=== PATIENT | female | born 1935 | race American Indian/Alaskan Native ===

== ENCOUNTER 2016-08-11 19:03 | Inpatient (IN) | payer MEDICARE ==
[2016-08-11 20:39] LABS: Basophils % (Auto) 0.4 % (0.0-1.8); Eosinophils % (Auto) 2.2 % (0.0-4.3); Hematocrit 33.8 % (30.3-42.9); Hemoglobin 10.9 gm/dl (10.1-14.3); Mean Corpuscular HGB Conc 32 % (30-34); Mean Corpuscular Hemoglobin 31 pg (28-32); Mean Corpuscular Volume 97 fl (79-97); Platelet Count 124 K/mm3 (140-440); Red Blood Count 3.48 M/mm3 (3.65-5.03); Red Cell Distribution Width 18.5 % (13.2-15.2); White Blood Count 9.7 K/mm3 (4.5-11.0)
[2016-08-11] MEDS ORDERED: DUONEB 0.5 MG-3 MG/3 ML SOLN IH ONE (20:43)
[2016-08-11 20:54] LABS: INR 1.64 (0.87-1.13)
--- NOTE | 2016-08-11 20:54 | Emergency Department Report ---
HPI - General Chief Complaint: Dyspnea/Respdistress Time Seen by Provider: 08/11/16 20:14 - HPI HPI: This is an 80-year-old Afro[place] female presents to the emergency department by EMS from [facility] with complaint of shortness of breath and some low oxygen saturation. The patient was found to have a oxygen saturation in the 80s on 3 L nasal cannula, which she is on [id number]. EMS placed her on a nonrebreather and she went up to 96%. She has a history of COPD, diabetes, GERD, hypertension, atrial fibrillation. The patient is on Pradaxa but unknown if she is compliant with that medication. There is also a listing of previous hypothyroidism, GERD, anemia, glaucoma. 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 She comes some [facility]. Unknown who her primary care doctor is. ED Past Medical Hx - Past Medical History Previous Medical History?: Yes Hx Hypertension: Yes Hx Diabetes: Yes Hx GERD: Yes Hx COPD: Yes - Surgical History Past Surgical History?: Yes - Social History Smoking Status: Never Smoker Substance Use Type: None - Medications Home Medications: Home Medications Medication Instructions Recorded Confirmed Last Taken Type AtorvaSTATin [Lipitor] 10 mg PO QDAY 08/11/16 08/11/16 Unknown History Cholecalciferol (Vitamin D3) 1,000 unit PO QDAY 08/11/16 08/11/16 Unknown History [Vitamin D3] Dabigatran [Pradaxa] 150 mg PO BID 08/11/16 08/11/16 Unknown History Docusate Calcium 240 mg PO QDAY 08/11/16 08/11/16 Unknown History Escitalopram [Lexapro] 10 mg PO DAILY 08/11/16 08/11/16 Unknown History Fluticasone/Salmeterol [Advair 1 puff IH BID 08/11/16 08/11/16 Unknown History Diskus 250-50 mcg] Hydrocortisone [Cortef TAB] 20 mg PO QDAY 08/11/16 08/11/16 Unknown History LORazepam [Ativan] 0.5 mg PO TID 08/11/16 08/11/16 Unknown History Levothyroxine [Synthroid] 75 mcg PO QAM 08/11/16 08/11/16 Unknown History Metoprolol [Lopressor] 25 mg PO BID 08/11/16 08/11/16 Unknown History Omeprazole Magnesium [PriLOSEC Otc] 20 mg PO QDAY 08/11/16 08/11/16 Unknown History Tiotropium [Spiriva] 18 mcg IH QDAY 08/11/16 08/11/16 Unknown History Travoprost (Benzalkonium) 1 drop OP QHS 08/11/16 08/11/16 Unknown History [Travoprost 0.004% Eye Drop] Vitamin B Complex [B Complex] 1 each PO DAILY 08/11/16 08/11/16 Unknown History amLODIPine [Norvasc] 10 mg PO DAILY 08/11/16 08/11/16 Unknown History hydrALAZINE [Apresoline TAB] 10 mg PO Q8H 08/11/16 08/11/16 Unknown History traMADol [Ultram] 50 mg PO Q6HR PRN 08/11/16 08/11/16 Unknown History ED Review of Systems ROS: Stated complaint: ULYSSES Other details as noted in HPI Comment: All other systems reviewed and negative Constitutional: denies: chills, fever Eyes: denies: eye pain, eye discharge, vision change ENT: denies: ear pain, throat pain Respiratory: cough, shortness of breath Cardiovascular: denies: chest pain, palpitations Gastrointestinal: denies: abdominal pain, nausea, diarrhea Genitourinary: denies: urgency, dysuria, discharge Musculoskeletal: denies: back pain, joint swelling, arthralgia Skin: denies: rash, lesions Neurological: denies: headache, weakness, paresthesias Physical Exam - Physical Exam Vital Signs: Vital Signs 08/11/16 08/11/16 08/11/16 19:25 20:26 20:30 Temperature 98.2 F Pulse Rate 108 H 107 H 94 H Respiratory 20 18 17 Rate Blood Pressure 112/74 132/82 O2 Sat by Pulse 96 Oximetry Physical Exam: GENERAL: The patient is well-developed well-nourished. HEENT: Normocephalic. Atraumatic. Extraocular motions are intact. Patient has moist mucous membranes. Pupils equal reactive to light bilaterally. NECK: Supple. Trachea is midline. CHEST/LUNGS: Coarse breath sounds throughout the chest. There is moderate wheezing throughout the chest as well. There is tachypnea and some supraclavicular accessory muscle use. There is mild respiratory distress noted. HEART/CARDIOVASCULAR: Regular. There is no tachycardia. There is no gallop rub or murmur. ABDOMEN: Abdomen is soft, nontender. Patient has normal bowel sounds. Obese habitus. SKIN: Skin is warm and dry. NEURO: The patient is awake, alert. The patient is cooperative. The patient has no focal neurologic deficits. MUSCULOSKELETAL: There is no tenderness or deformity. There is no limitation range of motion. There is no evidence of acute injury. Cap refill less than 2 seconds. Radial pulse +2 over 4 bilaterally. ED Course Vital Signs 08/11/16 08/11/16 08/11/16 19:25 20:26 20:30 Temperature 98.2 F Pulse Rate 108 H 107 H 94 H Respiratory 20 18 17 Rate Blood Pressure 112/74 132/82 O2 Sat by Pulse 96 Oximetry - ABG Interpretation Ph: [phone] PCO2: 51 PO2: 330 Bicarbonate: 33 Interpretation: respiratory acidosis, metabolic alkalosis - Central Line Placement Right Femoral Consent Obtained: verbal consent Time Out Performed: Yes Patient Placed on Monitor/Pulse Ox: Yes MD Prep: mask, gown, gloves Central Line Prep: Chlorhexidine scrub Local Anesthesia Used: Lidocaine 1% Amount of Anesthesia Used (mls): 3 Ultrasound Used for Placement: Yes Central Line Lumen Inserted: triple Bloods Obtained for Lab: No Central Line Position: good blood return, all ports aspirated, flus, sutured in place with nyl Dressing Applied: Tegaderm, sterile gauze/tape Patient Tolerated Procedure: well Complications: none Additional Comments: Prior to the right femoral central venous catheter, I attempted to place a right IJ CVC. However I cannulated the artery and therefore did not continue with the Seldinger technique. There was no introduction of the guidewire and there was no dilation. As soon as I noticed it to be arterial blood, the needle was removed and pressure was held for 5 minutes. At this point there was no expanding hematoma seen. I then changed the procedure to the right femoral vein. - EJ/Peripheral Line Arm L Time Out Performed: Yes Indications: nurses unable to establis Skin Cleansed in Sterile Fashion: Yes Size: 22 Dressing Placed: Tegaderm, tape Patient Tolerated Procedure: well Additional Comments: However the peripheral line eventually stopped working while the patient was in VQ scan. ED Medical Decision Making - Lab Data Result diagrams: 08/11/16 20:31 05/03/17 20:31 - EKG Data -: EKG Interpreted by Me - EKG Data When compared to previous EKG there are: previous EKG unavailable Interpretation: other (atrial fibrillation with RVR at 108 bpm. There are some premature ventricular complexes. Low voltage QRS, Q waves to the septal leads.) - Radiology Data Radiology results: report reviewed, image reviewed interpreted by me: Chest x-ray shows some mild to moderate cardiomegaly and pulmonary vascular congestion. Concerning for mild CHF. VQ scan is low probability for a pulmonary embolism. - Medical Decision Making This is a 80-year-old female presents the emergency department with some shortness of breath from her ECF. She was found have hypoxia at that time. She did present with some mild respiratory distress and was placed on a nonrebreather. This appeared to help, along with a DuoNeb. The arterial blood gas showed her to have too much oxygen being administered so she was switched to a nasal cannula. Patient's labs show a arterial blood gas consistent with respiratory acidosis and metabolic alkalosis. I believe the patient was having tachypnea and blowing off some of her excess CO2. Her labs also showed an elevated BNP, elevated lactic acid and an elevated d-dimer. There was no renal insufficiency. However we were having trouble getting peripheral IV access so a VQ scan was to be done. The nurses tried multiple times for peripheral IV. I was able to place a ultrasound-guided peripheral IV but it blew just before her VQ scan. A few other attempts were done but unsuccessful. At this point, knowing the patient needed further imaging and admission, a central line venous catheter was placed so that there was some type of IV access. As discussed in the procedural sec., I attempted to place a right IJ CVC but patient's anatomy was such that I hit the artery first. At this point the needle was taken out and direct pressure was held over the carotid and neck for 5 minutes and upon reevaluation there was no expansion or expanding hematoma. I then decided to put a right femoral CVC instead. This was done without any obvious complications. The VQ scan was eventually done and showed low probability for pulmonary embolus and. Overall the patient appears to have a combination of COPD exacerbation and CHF exacerbation. She will be admitted to the hospital for further evaluation and treatment and has been accepted for admission by the hospitalist, Dr. Moss. - Differential Diagnosis CHF, COPD, WI, PE, pneumonia Critical Care Time: No Critical care attestation.: If time is entered above; I have spent that time in minutes in the direct care of this critically ill patient, excluding procedure time. ED Disposition Clinical Impression: Respiratory distress Hypertension Qualifiers: Hypertension type: essential hypertension Qualified Code(s): I10 - Essential ( primary) hypertension CHF (congestive heart failure) Qualifiers: Congestive heart failure type: unspecified congestive heart failure type Congestive heart failure chronicity: unspecified congestive heart failure chronicity Qualified Code(s): I50.9 - Heart failure, unspecified COPD (chronic obstructive pulmonary disease) Qualifiers: COPD type: COPD with acute exacerbation Qualified Code(s): J44.1 - Chronic obstructive pulmonary disease with (acute) exacerbation Disposition: OP ADMITTED IP TO THIS HOSP Is pt being admited?: Yes Condition: Fair Instructions: Hypertension (ED), Chronic Obstructive Pulmonary Disease (ED) Referrals: PRIMARY CARE, [Primary Care Provider] - 3-5 Days Time of Disposition: 04:12
[2016-08-11 20:55] LABS: Partial Thromboplastin Time 49.5 Sec. (24.2-36.6)
[2016-08-11 21:04] LABS: Creatine Kinase MB 1.4 ng/mL (0.0-4.0)
[2016-08-11 21:06] LABS: Alanine Aminotransferase 12 units/L (7-56); Albumin 2.6 g/dL (3.9-5); Albumin/Globulin Ratio 0.8 %; Alkaline Phosphatase 58 units/L (35-129); Anion Gap 16 mmol/L; BUN/Creatinine Ratio 7.77; Blood Urea Nitrogen 7 mg/dL (7-17); Calcium 8.1 mg/dL (8.4-10.2); Carbon Dioxide 31 mmol/L (22-30); Chloride 98.3 mmol/L (98-107); Creatine Kinase 65 units/L (30-135); Glucose 87 mg/dL (65-100); Lipase 7 units/L (13-60); Potassium 4.9 mmol/L (3.6-5.0); Sodium 140 mmol/L (137-145)
--- NOTE | 2016-08-11 22:00 | XRay Report ---
FINAL REPORT PROCEDURE: XR CHEST 1V AP TECHNIQUE: Chest radiograph anteroposterior view. CPT 56208 HISTORY: Dyspnea COMPARISON: No prior studies are available for comparison. FINDINGS: Heart: The heart is enlarged. Mediastinum/Vessels: There is mild pulmonary vascular congestion. There is calcified plaque in the thoracic aorta. There is no aneurysm.. Lungs/Pleural space: There is suboptimal inspiration. There is atelectasis at the left lung base. There are no infiltrates, effusions or pneumothoraces.. Bony thorax: No acute osseous abnormality. Life support devices: None. IMPRESSION: The heart is enlarged. There is mild pulmonary vascular congestion. There is calcified plaque in the thoracic aorta. There is no aneurysm.. There is suboptimal inspiration. There is atelectasis at the left lung base. There are no infiltrates, effusions or pneumothoraces.. .
[2016-08-11] MEDS ORDERED: LASIX IV ONE (22:37)
[2016-08-11] MEDS ORDERED: MAGNESIUM SULFATE 2GM/50ML 2 GM/50 ML BAG IV ONE (22:37)
[2016-08-11 22:41] LABS: ISTAT Base Excess 9; ISTAT HCO3 33.6; ISTAT PCO2 51.9 (35-45); ISTAT PH 7.419 (7.35-7.45); ISTAT PO2 330 (80-105); ISTAT SO2 100; ISTAT TCO2 35
--- NOTE | 2016-08-12 01:58 | Nuclear Medicine Report ---
FINAL REPORT PROCEDURE: NM LUNG SCAN PERF/VENT TECHNIQUE: 5 mCi Tc-99m MAA was injected IV for pulmonary perfusion imaging in multiple projections. 15 MCi XE-[id number] was inhaled for pulmonary ventilation imaging in multiple projections. Injection site: RIGHT antecubital fossa. CPT 42346 REGULATORY GUIDELINES: The patient was released based upon guidelines established in [place] State Regulations for Protection Against Radiation, Chapter 1355-07-13-35, Release of Individuals Containing Radioactive Drugs or Implants. HISTORY: SOb, elevated dimer COMPARISON: No prior studies are available for comparison. FINDINGS: Both the ventilation and perfusion studies demonstrate indirect evidence of cardiomegaly. There are no perfusion defects or matching or mismatching ventilation defects.. IMPRESSION: Low probability of pulmonary embolism.
[2016-08-12] MEDS ORDERED: PROVENTIL IH ONE (02:08)
[2016-08-12] MEDS ORDERED: LOPRESSOR IV ONE (02:09)
[2016-08-12] MEDS ORDERED: ZOFRAN IV PRN (03:35)
[2016-08-12] MEDS ORDERED: MILK OF MAGNESIA PO PRN (03:35)
[2016-08-12] MEDS ORDERED: DULCOLAX PR PRN (03:35)
[2016-08-12] MEDS ORDERED: TYLENOL PO PRN (03:35)
--- NOTE | 2016-08-12 03:38 | History and Physical Report ---
History of Present Illness Date of examination: 08/12/16 History of present illness: 80-year-old woman history of hypertension, diabetes, COPD, GERD, A. fib, hypothyroidism, hyperlipidemia comes emergency room with complaints of shortness of breath, cough. Patient was given steroids and nebulizer treatments in the emergency room. Status post recent surgery on the left foot Patient denies chest pain, palpitation, abdominal pain, hematochezia, dysuria, frequency, focal weakness, dysarthria, fever chills, polydipsia polyuria, hot or cold intolerance, easy bruisability, or rash or bleeding from mucosal membrane, rhinorrhea, epistaxis, earache, tinnitus, blurry vision, eye discharge , anxiety, depression. Other review of systems negative PAST SURGICAL HISTORY: Amputation of the left great and second toe SOCIAL HISTORY: [facility] resident, no tobacco, alcohol FAMILY HISTORY: Hypertension Medications and Allergies Allergies Allergy/AdvReac Type Severity Reaction Status Date / Time Penicillins Allergy Severe Anaphylaxis Verified 08/11/16 19:56 Home Medications Medication Instructions Recorded Confirmed Last Taken Type AtorvaSTATin [Lipitor] 10 mg PO QDAY 08/11/16 08/11/16 Unknown History Cholecalciferol (Vitamin D3) 1,000 unit PO QDAY 08/11/16 08/11/16 Unknown History [Vitamin D3] Dabigatran [Pradaxa] 150 mg PO BID 08/11/16 08/11/16 Unknown History Docusate Calcium 240 mg PO QDAY 08/11/16 08/11/16 Unknown History Escitalopram [Lexapro] 10 mg PO DAILY 08/11/16 08/11/16 Unknown History Fluticasone/Salmeterol [Advair 1 puff IH BID 08/11/16 08/11/16 Unknown History Diskus 250-50 mcg] Hydrocortisone [Cortef TAB] 20 mg PO QDAY 08/11/16 08/11/16 Unknown History LORazepam [Ativan] 0.5 mg PO TID 08/11/16 08/11/16 Unknown History Levothyroxine [Synthroid] 75 mcg PO QAM 08/11/16 08/11/16 Unknown History Metoprolol [Lopressor] 25 mg PO BID 08/11/16 08/11/16 Unknown History Omeprazole Magnesium [PriLOSEC Otc] 20 mg PO QDAY 08/11/16 08/11/16 Unknown History Tiotropium [Spiriva] 18 mcg IH QDAY 08/11/16 08/11/16 Unknown History Travoprost (Benzalkonium) 1 drop OP QHS 08/11/16 08/11/16 Unknown History [Travoprost 0.004% Eye Drop] Vitamin B Complex [B Complex] 1 each PO DAILY 08/11/16 08/11/16 Unknown History amLODIPine [Norvasc] 10 mg PO DAILY 08/11/16 08/11/16 Unknown History hydrALAZINE [Apresoline TAB] 10 mg PO Q8H 08/11/16 08/11/16 Unknown History traMADol [Ultram] 50 mg PO Q6HR PRN 08/11/16 08/11/16 Unknown History Exam - Physical Exam Narrative exam: Gen. appearance: Patient lying in bed, no apparent distress HEENT: Normocephalic, atraumatic, pupils equally round and reactive to light, extraocular movement intact, and no sclericterus,. No JVD or thyromegaly or nodule,neck supple, no carotid bruit ,mucous membranes moist, no exudate or erythema Heart: S1, S2, regular rate and rhythm Lungs: Diffuse wheezing, decreased air entry bilaterally, breathing comfortable Abdomen: Positive bowel sounds, nontender, nondistended, no organomegaly Extremity: No edema, cyanosis, clubbing Skin: No rash, nodules, warm, dry Neuro: Oriented 3, cranial nerves II-12 intact, speech is fluent, motor and sensory intact - Constitutional Vitals: Temp Pulse Resp BP Pulse Ox 98.2 F 96 H 20 175/89 98 08/11/16 19:25 08/12/16 02:56 08/12/16 02:56 08/12/16 02:00 08/12/16 02:00 Results - Labs CBC & Chem 7: 08/13/16 07:15 08/13/16 07:15 Labs: Abnormal lab results 08/11/16 08/11/16 08/11/16 Range/Units 20:31 20:31 20:31 RBC 3.48 L (3.65-5.03) M/mm3 RDW 18.5 H (13.2-15.2) % Plt Count 124 L (140-440) K/mm3 Lymph % (Auto) 7.9 L (13.4-35.0) % Lymph # 0.8 L (1.2-5.4) K/mm3 Seg Neutrophils % 83.4 H (40.0-70.0) % Seg Neutrophils # 8.1 H (1.8-7.7) K/mm3 PT 19.4 H (12.2-14.9) Sec. INR 1.64 H (0.87-1.13) APTT 49.5 H (24.2-36.6) Sec. D-Dimer (0-234) ng/mlDDU POC ABG pCO2 (35-45) POC ABG pO2 (80-105) Carbon Dioxide 31 H (22-30) mmol/L Lactic Acid (0.7-2.0) mmol/L Calcium 8.1 L (8.4-10.2) mg/dL NT-Pro-B Natriuret Pep (0-900) pg/mL Total Protein 6.0 L (6.3-8.2) g/dL Albumin 2.6 L (3.9-5) g/dL Lipase 7 L (13-60) units/L 08/11/16 08/11/16 08/11/16 Range/Units 20:31 20:31 20:51 RBC (3.65-5.03) M/mm3 RDW (13.2-15.2) % Plt Count (140-440) K/mm3 Lymph % (Auto) (13.4-35.0) % Lymph # (1.2-5.4) K/mm3 Seg Neutrophils % (40.0-70.0) % Seg Neutrophils # (1.8-7.7) K/mm3 PT (12.2-14.9) Sec. INR (0.87-1.13) APTT (24.2-36.6) Sec. D-Dimer 819.59 H (0-234) ng/mlDDU POC ABG pCO2 (35-45) POC ABG pO2 (80-105) Carbon Dioxide (22-30) mmol/L Lactic Acid 2.40 H* (0.7-2.0) mmol/L Calcium (8.4-10.2) mg/dL NT-Pro-B Natriuret Pep 2212 H (0-900) pg/mL Total Protein (6.3-8.2) g/dL Albumin (3.9-5) g/dL Lipase (13-60) units/L // Range/Units 22:31 RBC (3.65-5.03) M/mm3 RDW (13.2-15.2) % Plt Count (140-440) K/mm3 Lymph % (Auto) (13.4-35.0) % Lymph # (1.2-5.4) K/mm3 Seg Neutrophils % (40.0-70.0) % Seg Neutrophils # (1.8-7.7) K/mm3 PT (12.2-14.9) Sec. INR (0.87-1.13) APTT (24.2-36.6) Sec. D-Dimer (0-234) ng/mlDDU POC ABG pCO2 51.9 H (35-45) POC ABG pO2 330 H (80-105) Carbon Dioxide (22-30) mmol/L Lactic Acid (0.7-2.0) mmol/L Calcium (8.4-10.2) mg/dL NT-Pro-B Natriuret Pep (0-900) pg/mL Total Protein (6.3-8.2) g/dL Albumin (3.9-5) g/dL Lipase (13-60) units/L - Imaging and Cardiology EKG: image reviewed Chest x-ray: image reviewed Assessment and Plan COPD exacerbation Hypertension Diabetes of 2 GERD A. fib Hypothyroidism Hyperlipidemia Admits medicine Start high-dose steroids, nebulizer treatments Continue appropriate outpatient medications DVT prophylaxis with Pradaxa
[2016-08-12 04:25] LABS: Creatine Kinase MB 1.8 ng/mL (0.0-4.0)
[2016-08-12 04:26] LABS: Creatine Kinase 90 units/L (30-135)
--- NOTE | 2016-08-12 05:29 | Admit Criteria Form ---
Admission Criteria Documentation: HEART FAILURE: COMMON COMPLICATIONS Clinical Indications for Inpatient Care (Place 'X' for any and all applicable criteria): Ongoing inpatient care may be indicated for heart failure with ANY ONE of the following (1)(2)(3)(4)(5): [ ]I. Ongoing need for care for primary condition requiring frequent therapy adjustments because of changes in cardiac function (eg, drug dosage changes for drugs that are renally metabolized) [ ]II. New-onset heart failure [ ]III. Heart failure with decreased urine output not responsive to attempts to optimize volume status [ ]IV. Acute cardiac ischemia causing or associated with failure [X]V. Complications of heart failure, including ANY ONE of the following: [ ]a) Pericardial effusion [ ]b) Symptomatic pleural effusion [ ]c) O2 saturation <90% or PO2 < 60 mm Hg (8.0 kPa) on room air or require baseline supplemental O2 [ ]d) Tachypnea [X ]e) Dyspnea [ ]f) Syncope [ ]g) Change in mental status [ ]h) Acute renal insufficiency that is severe (reduction of more than 50% in estimated glomerular filtration rate from baseline) or progressive reduction of more than 25% in estimated glomerular filtration rate from baseline, with creatinine continuing to rise) [ ]i) Hemodynamic instability [ ]j) Anasarca [ ]k) Clinically significant metabolic abnormalities due to heart failure (eg, new-onset metabolic acidosis) Extended stay beyond goal length of stay for primary condition may be needed until ALL of the following are present(1)(3): [ ]a) Stable and effective diuretic regimen established (or patient on stable dialysis regimen if in chronic renal failure) [ ]b) Breathing comfortably at rest [ ]c) Saturation of arterial oxygen greater than 90% or at acceptable baseline [ ]d) Pulmonary edema absent or improved [ ]e) Hemodynamic stability [ ]f) Volume status acceptable on oral medication [ ]g) Peripheral or sacral edema absent or improved [ ]h) Renal function stable and manageable at a lower level of care [ ]i) Complications (eg, pleural effusion) resolved or manageable at a lower level of care [ ]j) Patient or caregiver has received written discharge instructions or educational material addressing activity level, diet, discharge medications, follow-up appointment, weight monitoring, and what to do if symptoms worsen The original [employer] content created by [employer] has been revised. The portions of the content which have been revised are identified through the use of italic text or in bold, and [facility] has neither reviewed nor approved the modified material.All other unmodified content is copyright [facility]. Please see references footnoted in the original [facility] edition 2016 Admission Criteria Met: Yes
[2016-08-12] MEDS: SYNTHROID PO SCH (06:28)
[2016-08-12] MEDS: PULMICORT IH SCH ×2 (07:39→19:59)
[2016-08-12] MEDS: DUONEB 0.5 MG-3 MG/3 ML SOLN IH SCH ×3 (07:39→19:59)
[2016-08-12] MEDS: BROVANA NEBU IH SCH ×2 (07:40→20:00)
[2016-08-12] MEDS: VITAMIN D3 PO SCH (09:02)
[2016-08-12] MEDS: LEXAPRO PO SCH (09:02)
[2016-08-12] MEDS: LOPRESSOR PO SCH ×2 (09:02→22:00)
[2016-08-12] MEDS: PROTONIX PO SCH (09:03)
[2016-08-12] MEDS: ATIVAN PO SCH ×3 (09:03→22:01)
[2016-08-12 10:00] LABS: Creatine Kinase 96 units/L (30-135)
[2016-08-12] MEDS ORDERED: DOCUSATE CALCIUM 240 MG PO SCH (10:00)
[2016-08-12] MEDS ORDERED: NON-FORMULARY (Cholecalciferol (Vitamin D3) [Vitamin D3] 1,000 UNIT) PO SCH (10:00)
[2016-08-12] MEDS ORDERED: NON-FORMULARY (Fluticasone/Salmeterol [Advair Diskus 250-50 Mcg] 1 PUFF) IH SCH (10:00)
[2016-08-12] MEDS ORDERED: NON-FORMULARY (Omeprazole Magnesium [Prilosec Otc] 20 MG) PO SCH (10:00)
[2016-08-12] MEDS: ZITHROMAX PO SCH (11:02)
--- NOTE | 2016-08-12 13:45 | Event Note ---
Date: 08/12/16 Patient admitted this morning was management of COPD exacerbation. I revised the chart and examined patient. Patient is still short of breath and will continue with the same management.
[2016-08-12] MEDS: PRADAXA PO SCH ×2 (13:54→22:02)
[2016-08-12] MEDS ORDERED: NON-FORMULARY (Travoprost (Benzalkonium) [Travoprost 0.004% Eye Drop] 1 DROP) OP SCH (22:00)
[2016-08-12] MEDS: XALATAN 0.005% OU SCH (22:29)
[2016-08-13] MEDS: DUONEB 0.5 MG-3 MG/3 ML SOLN IH SCH ×4 (01:35→20:47)
[2016-08-13] MEDS: SYNTHROID PO SCH (06:03)
[2016-08-13 07:54] LABS: Hematocrit 33.3 % (30.3-42.9); Hemoglobin 10.7 gm/dl (10.1-14.3); Mean Corpuscular HGB Conc 32 % (30-34); Mean Corpuscular Hemoglobin 30 pg (28-32); Mean Corpuscular Volume 94 fl (79-97); Platelet Count 112 K/mm3 (140-440); Red Blood Count 3.53 M/mm3 (3.65-5.03); Red Cell Distribution Width 17.3 % (13.2-15.2); White Blood Count 13.2 K/mm3 (4.5-11.0)
[2016-08-13 08:09] LABS: Anion Gap 15 mmol/L; Blood Urea Nitrogen 12 mg/dL (7-17); Calcium 8.4 mg/dL (8.4-10.2); Carbon Dioxide 31 mmol/L (22-30); Chloride 97.5 mmol/L (98-107); Glucose 185 mg/dL (65-100); Potassium 4.1 mmol/L (3.6-5.0); Sodium 139 mmol/L (137-145)
[2016-08-13] MEDS: BROVANA NEBU IH SCH ×2 (08:47→20:31)
[2016-08-13] MEDS: PULMICORT IH SCH ×2 (08:48→20:31)
[2016-08-13 10:11] LABS: Blastocytes % (Manual) 0 %
[2016-08-13 10:12] LABS: Acanthocytes Rare; Anisocytosis 1+; Basophils % (Manual) 0 % (0.0-1.8); Diff Status Complete; Eosinophils % (Manual) 0 % (0.0-4.3); Platelet Estimate Appears Decreased
[2016-08-13] MEDS: VITAMIN D3 PO SCH (10:17)
[2016-08-13] MEDS: PROTONIX PO SCH (10:17)
[2016-08-13] MEDS: LOPRESSOR PO SCH ×2 (10:17→21:58)
[2016-08-13] MEDS: LEXAPRO PO SCH (10:17)
[2016-08-13] MEDS: COLACE PO SCH ×2 (10:17→21:59)
[2016-08-13] MEDS: ZITHROMAX PO SCH (10:22)
[2016-08-13] MEDS: PRADAXA PO SCH ×2 (10:22→21:58)
[2016-08-13] MEDS: ATIVAN PO SCH ×3 (11:54→21:59)
--- NOTE | 2016-08-13 13:31 | Progress Note ---
Assessment and Plan Assessment and plan: COPD exacerbation Hypertension Hypothyroidism A. fib GERD - Solu-Medrol, azithromycin, bruising treatment, oxygen support - Patient is on metoprolol and pradaxa - Continue levothyroxine - Continue omeprazole DVT prophylaxis - Lovenox Disposition - Pending [facility] placement. History Interval history: patient was seen and evaluated this morning. Patient breathing is getting better, her daughter doesn't want to send her back to her previous [facility]. Patient is pending for placement. Hospitalist Physical - Physical exam Narrative exam: Not in cardiopulmonary distress. The patient is obese. Vital signs as documented. Head exam is unremarkable. No scleral icterus . Neck is without jugular venous distension, thyromegaly, or carotid bruits. Lungs wheezing gone over the chest. Cardiac exam reveals regular rate and Rhythm. First and second heart sounds normal. No murmurs, rubs or gallops. Abdominal exam reveals normal bowel sounds, no masses, no organomegaly and no aortic enlargement. Extremities clean dressing on the left foot. 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 N - Constitutional Vitals: Temp Pulse Resp BP Pulse Ox 98.9 F 108 H 22 122/58 98 08/13/16 07:00 08/13/16 08:55 08/13/16 08:55 08/13/16 07:00 08/13/16 08:43 Results - Labs CBC & Chem 7: 08/13/16 07:15 08/13/16 07:15 Labs: Laboratory Last Values WBC 13.2 K/mm3 (4.5-11.0) H 08/13/16 07:15 RBC 3.53 M/mm3 (3.65-5.03) L 08/13/16 07:15 Hgb 10.7 gm/dl (10.1-14.3) 08/13/16 07:15 Hct 33.3 % (30.3-42.9) 08/13/16 07:15 MCV 94 fl (79-97) D 08/13/16 07:15 MCH 30 pg (28-32) 08/13/16 07:15 MCHC 32 % (30-34) 08/13/16 07:15 RDW 17.3 % (13.2-15.2) H 08/13/16 07:15 Plt Count 112 K/mm3 (140-440) L 08/13/16 07:15 Lymph % (Auto) 7.9 % (13.4-35.0) L 08/11/16 20:31 [place] % (Auto) 6.1 % (0.0-7.3) 08/11/16 20:31 Eos % (Auto) 2.2 % (0.0-4.3) 08/11/16 20:31 Baso % (Auto) 0.4 % (0.0-1.8) 08/11/16 20:31 Lymph # 0.8 K/mm3 (1.2-5.4) L 08/11/16 20:31 [place] # 0.6 K/mm3 (0.0-0.8) 08/11/16 20:31 Eos # 0.2 K/mm3 (0.0-0.4) 08/11/16 20:31 Baso # 0.0 K/mm3 (0.0-0.1) 08/11/16 20:31 Add Manual Diff Complete 08/13/16 07:15 Total Counted 100 08/13/16 07:15 Seg Neutrophils % Pecan Picker 08/13/16 07:15 Seg Neuts % (Manual) 99.0 % (40.0-70.0) H 08/13/16 07:15 Band Neutrophils % 0 % 08/13/16 07:15 Lymphocytes % (Manual) 0 % (13.4-35.0) L 08/13/16 07:15 Reactive Lymphs % (Man) 0 % 08/13/16 07:15 Monocytes % (Manual) 1.0 % (0.0-7.3) 08/13/16 07:15 Eosinophils % (Manual) 0 % (0.0-4.3) 08/13/16 07:15 Basophils % (Manual) 0 % (0.0-1.8) 08/13/16 07:15 Metamyelocytes % 0 % 08/13/16 07:15 Myelocytes % 0 % 08/13/16 07:15 Promyelocytes % 0 % 08/13/16 07:15 Blast Cells % 0 % 08/13/16 07:15 Nucleated RBC % Not Reportable 08/13/16 07:15 Seg Neutrophils # 8.1 K/mm3 (1.8-7.7) H 08/11/16 20:31 Seg Neutrophils # Man 13.1 K/mm3 (1.8-7.7) H 08/13/16 07:15 Band Neutrophils # 0.0 K/mm3 08/13/16 07:15 Lymphocytes # (Manual) 0.0 K/mm3 (1.2-5.4) L 08/13/16 07:15 Abs React Lymphs (Man) 0.0 K/mm3 08/13/16 07:15 Monocytes # (Manual) 0.1 K/mm3 (0.0-0.8) 08/13/16 07:15 Eosinophils # (Manual) 0.0 K/mm3 (0.0-0.4) 08/13/16 07:15 Basophils # (Manual) 0.0 K/mm3 (0.0-0.1) 08/13/16 07:15 Metamyelocytes # 0.0 K/mm3 08/13/16 07:15 Myelocytes # 0.0 K/mm3 08/13/16 07:15 Promyelocytes # 0.0 K/mm3 08/13/16 07:15 Blast Cells # 0.0 K/mm3 08/13/16 07:15 WBC Morphology Not Reportable 08/13/16 07:15 Hypersegmented Neuts Not Reportable 08/13/16 07:15 Hyposegmented Neuts Not Reportable 08/13/16 07:15 Hypogranular Neuts Not Reportable 08/13/16 07:15 Smudge Cells Not Reportable 08/13/16 07:15 Toxic Granulation Not Reportable 08/13/16 07:15 Toxic Vacuolation Not Reportable 08/13/16 07:15 Dohle Bodies Not Reportable 08/13/16 07:15 Pelger-Huet Anomaly Not Reportable 08/13/16 07:15 Debra Rods Not Reportable 08/13/16 07:15 Platelet Estimate Appears decreased 08/13/16 07:15 Clumped Platelets Not Reportable 08/13/16 07:15 Plt Clumps, EDTA Not Reportable 08/13/16 07:15 Large Platelets Not Reportable 08/13/16 07:15 Giant Platelets Not Reportable 08/13/16 07:15 Platelet Satelliting Not Reportable 08/13/16 07:15 Plt Morphology Comment Not Reportable 08/13/16 07:15 RBC Morphology Not Reportable 08/13/16 07:15 Dimorphic RBCs Not Reportable 08/13/16 07:15 Polychromasia Not Reportable 08/13/16 07:15 Hypochromasia Not Reportable 08/13/16 07:15 Poikilocytosis Not Reportable 08/13/16 07:15 Anisocytosis 1+ 08/13/16 07:15 Microcytosis Not Reportable 08/13/16 07:15 Macrocytosis Not Reportable 08/13/16 07:15 Spherocytes Not Reportable 08/13/16 07:15 Pappenheimer Bodies Not Reportable 08/13/16 07:15 Sickle Cells Not Reportable 08/13/16 07:15 Target Cells Not Reportable 08/13/16 07:15 Tear Drop Cells Not Reportable 08/13/16 07:15 Ovalocytes Not Reportable 08/13/16 07:15 Helmet Cells Not Reportable 08/13/16 07:15 [place] Bodies Not Reportable 08/13/16 07:15 [place] Rings Not Reportable 08/13/16 07:15 [place] Cells Not Reportable 08/13/16 07:15 Bite Cells Not Reportable 08/13/16 07:15 Crenated Cell Not Reportable 08/13/16 07:15 Elliptocytes Not Reportable 08/13/16 07:15 Acanthocytes (Spur) Rare 08/13/16 07:15 Rouleaux Not Reportable 08/13/16 07:15 Hemoglobin C Crystals Not Reportable 08/13/16 07:15 Schistocytes Not Reportable 08/13/16 07:15 Malaria parasites Not Reportable 08/13/16 07:15 Yung Bodies Not Reportable 08/13/16 07:15 Hem Pathologist Commnt No 08/13/16 07:15 PT 19.4 Sec. (12.2-14.9) H 08/11/16 20:31 INR 1.64 (0.87-1.13) H 08/11/16 20:31 APTT 49.5 Sec. (24.2-36.6) H 08/11/16 20:31 D-Dimer 819.59 ng/mlDDU (0-234) H 08/11/16 20:31 POC ABG pH 7.419 (7.35-7.45) 08/11/16 22:31 POC ABG pCO2 51.9 (35-45) H 08/11/16 22:31 POC ABG pO2 330 (80-105) H 08/11/16 22:31 POC ABG HCO3 33.6 08/11/16 22:31 POC ABG Total CO2 35 08/11/16 22:31 POC ABG O2 Sat 100 08/11/16 22:31 POC ABG Base Excess 9 08/11/16 22:31 FiO2 100 % 08/11/16 22:31 Sodium 139 mmol/L (137-145) 08/13/16 07:15 Potassium 4.1 mmol/L (3.6-5.0) 08/13/16 07:15 Chloride 97.5 mmol/L (98-107) L 08/13/16 07:15 Carbon Dioxide 31 mmol/L (22-30) H 08/13/16 07:15 Anion Gap 15 mmol/L 08/13/16 07:15 BUN 12 mg/dL (7-17) 08/13/16 07:15 Creatinine 1.0 mg/dL (0.7-1.2) 08/13/16 07:15 Estimated GFR > 60 ml/min 08/13/16 07:15 BUN/Creatinine Ratio 12.00 % 08/13/16 07:15 Glucose 185 mg/dL (65-100) H 08/13/16 07:15 POC Glucose 255 (70-105) H 08/13/16 11:33 Lactic Acid 2.40 mmol/L (0.7-2.0) H* 08/11/16 20:51 Calcium 8.4 mg/dL (8.4-10.2) 08/13/16 07:15 Magnesium 1.90 mg/dL (1.7-2.3) 08/11/16 20:31 Total Bilirubin 0.40 mg/dL (0.1-1.2) 08/11/16 20:31 AST 16 units/L (5-40) 08/11/16 20:31 ALT 12 units/L (7-56) 08/11/16 20:31 Alkaline Phosphatase 58 units/L (35-129) 08/11/16 20:31 Total Creatine Kinase 96 units/L (30-135) 08/12/16 09:10 CK-MB (CK-2) 2.0 ng/mL (0.0-4.0) 08/12/16 09:10 CK-MB (CK-2) Rel Index 2.0 (0-4) 08/12/16 09:10 Troponin T < 0.010 ng/mL (0.00-0.029) 08/12/16 09:10 NT-Pro-B Natriuret Pep 2212 pg/mL (0-900) H 08/11/16 20:31 Total Protein 6.0 g/dL (6.3-8.2) L 08/11/16 20:31 Albumin 2.6 g/dL (3.9-5) L 08/11/16 20:31 Albumin/Globulin Ratio 0.8 % 08/11/16 20:31 Lipase 7 units/L (13-60) L 08/11/16 20:31
[2016-08-13] MEDS: XALATAN 0.005% OU SCH ×2 (22:00→22:18)
[2016-08-14] MEDS: DUONEB 0.5 MG-3 MG/3 ML SOLN IH SCH ×4 (02:22→20:00)
[2016-08-14] MEDS: SYNTHROID PO SCH (06:40)
[2016-08-14 07:20] LABS: Hemoglobin 10.7 gm/dl (10.1-14.3); Mean Corpuscular HGB Conc 31 % (30-34); Mean Corpuscular Hemoglobin 30 pg (28-32); Mean Corpuscular Volume 95 fl (79-97); Platelet Count 118 K/mm3 (140-440); Red Cell Distribution Width 17.8 % (13.2-15.2); White Blood Count 13.5 K/mm3 (4.5-11.0)
[2016-08-14 07:44] LABS: Anion Gap 16 mmol/L; BUN/Creatinine Ratio 16.66; Blood Urea Nitrogen 15 mg/dL (7-17); Calcium 8.3 mg/dL (8.4-10.2); Carbon Dioxide 30 mmol/L (22-30); Chloride 98.2 mmol/L (98-107); Glucose 189 mg/dL (65-100); Sodium 140 mmol/L (137-145)
[2016-08-14] MEDS: PULMICORT IH SCH ×2 (07:53→20:00)
[2016-08-14] MEDS: BROVANA NEBU IH SCH ×2 (07:53→20:01)
[2016-08-14 10:33] LABS: Basophils % (Manual) 0 % (0.0-1.8); Blastocytes % (Manual) 0 %; Eosinophils % (Manual) 0 % (0.0-4.3)
[2016-08-14 10:34] LABS: Anisocytosis 1+; Diff Status Complete; Platelet Estimate Consistent w Auto
[2016-08-14] MEDS: ZITHROMAX PO SCH (11:26)
[2016-08-14] MEDS: ATIVAN PO SCH ×3 (11:26→21:52)
[2016-08-14] MEDS: LEXAPRO PO SCH (11:26)
[2016-08-14] MEDS: COLACE PO SCH ×2 (11:27→21:52)
[2016-08-14] MEDS: PROTONIX PO SCH (11:27)
[2016-08-14] MEDS: LOPRESSOR PO SCH ×2 (11:27→21:50)
[2016-08-14] MEDS: VITAMIN D3 PO SCH (11:27)
[2016-08-14] MEDS: PRADAXA PO SCH ×2 (11:28→23:19)
--- NOTE | 2016-08-14 12:06 | Progress Note ---
Assessment and Plan Assessment and plan: COPD exacerbation Hypertension Hypothyroidism A. fib GERD - Solu-Medrol, azithromycin, breathing treatment, oxygen support - Patient is on metoprolol and pradaxa - Continue levothyroxine - Continue omeprazole DVT prophylaxis - Pradaxa Disposition - Pending retirement placement. History Interval history: patient was seen and evaluated this morning. Patient breathing is getting better, her daughter doesn't want to send her back to her previous retirement. Patient is pending for placement. Hospitalist Physical - Physical exam Narrative exam: Not in cardiopulmonary distress. The patient is obese. Vital signs as documented. Head exam is unremarkable. No scleral icterus . Neck is without jugular venous distension, thyromegaly, or carotid bruits. Lungs wheezing all over the chest. Cardiac exam reveals regular rate and Rhythm. First and second heart sounds normal. No murmurs, rubs or gallops. Abdominal exam reveals normal bowel sounds, no masses, no organomegaly and no aortic enlargement. Extremities clean dressing on the left foot. 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 N - Constitutional Vitals: Temp Pulse Resp BP Pulse Ox 98 F 107 H 24 125/63 100 08/14/16 08:50 08/14/16 08:50 08/14/16 08:50 08/14/16 08:50 08/14/16 09:54 Results - Labs CBC & Chem 7: 08/14/16 06:48 08/14/16 06:48 Labs: Laboratory Last Values WBC 13.5 K/mm3 (4.5-11.0) H 08/14/16 06:48 RBC 3.60 M/mm3 (3.65-5.03) L 08/14/16 06:48 Hgb 10.7 gm/dl (10.1-14.3) 08/14/16 06:48 Hct 34.0 % (30.3-42.9) 08/14/16 06:48 MCV 95 fl (79-97) 08/14/16 06:48 MCH 30 pg (28-32) 08/14/16 06:48 MCHC 31 % (30-34) 08/14/16 06:48 RDW 17.8 % (13.2-15.2) H 08/14/16 06:48 Plt Count 118 K/mm3 (140-440) L 08/14/16 06:48 Lymph % (Auto) 7.9 % (13.4-35.0) L 08/11/16 20:31 [place] % (Auto) 6.1 % (0.0-7.3) 08/11/16 20:31 Eos % (Auto) 2.2 % (0.0-4.3) 08/11/16 20:31 Baso % (Auto) 0.4 % (0.0-1.8) 08/11/16 20:31 Lymph # 0.8 K/mm3 (1.2-5.4) L 08/11/16 20:31 [place] # 0.6 K/mm3 (0.0-0.8) 08/11/16 20:31 Eos # 0.2 K/mm3 (0.0-0.4) 08/11/16 20:31 Baso # 0.0 K/mm3 (0.0-0.1) 08/11/16 20:31 Add Manual Diff Complete 08/14/16 06:48 Total Counted 100 08/14/16 06:48 Seg Neutrophils % Stuffer 08/14/16 06:48 Seg Neuts % (Manual) 96.0 % (40.0-70.0) H 08/14/16 06:48 Band Neutrophils % 0 % 08/14/16 06:48 Lymphocytes % (Manual) 2.0 % (13.4-35.0) L 08/14/16 06:48 Reactive Lymphs % (Man) 0 % 08/14/16 06:48 Monocytes % (Manual) 2.0 % (0.0-7.3) 08/14/16 06:48 Eosinophils % (Manual) 0 % (0.0-4.3) 08/14/16 06:48 Basophils % (Manual) 0 % (0.0-1.8) 08/14/16 06:48 Metamyelocytes % 0 % 08/14/16 06:48 Myelocytes % 0 % 08/14/16 06:48 Promyelocytes % 0 % 08/14/16 06:48 Blast Cells % 0 % 08/14/16 06:48 Nucleated RBC % Not Reportable 08/14/16 06:48 Seg Neutrophils # 8.1 K/mm3 (1.8-7.7) H 08/11/16 20:31 Seg Neutrophils # Man 13.0 K/mm3 (1.8-7.7) H 08/14/16 06:48 Band Neutrophils # 0.0 K/mm3 08/14/16 06:48 Lymphocytes # (Manual) 0.3 K/mm3 (1.2-5.4) L 08/14/16 06:48 Abs React Lymphs (Man) 0.0 K/mm3 08/14/16 06:48 Monocytes # (Manual) 0.3 K/mm3 (0.0-0.8) 08/14/16 06:48 Eosinophils # (Manual) 0.0 K/mm3 (0.0-0.4) 08/14/16 06:48 Basophils # (Manual) 0.0 K/mm3 (0.0-0.1) 08/14/16 06:48 Metamyelocytes # 0.0 K/mm3 08/14/16 06:48 Myelocytes # 0.0 K/mm3 08/14/16 06:48 Promyelocytes # 0.0 K/mm3 08/14/16 06:48 Blast Cells # 0.0 K/mm3 08/14/16 06:48 WBC Morphology Not Reportable 08/14/16 06:48 Hypersegmented Neuts Not Reportable 08/14/16 06:48 Hyposegmented Neuts Not Reportable 08/14/16 06:48 Hypogranular Neuts Not Reportable 08/14/16 06:48 Smudge Cells Not Reportable 08/14/16 06:48 Toxic Granulation Not Reportable 08/14/16 06:48 Toxic Vacuolation Not Reportable 08/14/16 06:48 Dohle Bodies Not Reportable 08/14/16 06:48 Pelger-Huet Anomaly Not Reportable 08/14/16 06:48 Debra Rods Not Reportable 08/14/16 06:48 Platelet Estimate Consistent w auto 08/14/16 06:48 Clumped Platelets Not Reportable 08/14/16 06:48 Plt Clumps, EDTA Not Reportable 08/14/16 06:48 Large Platelets Not Reportable 08/14/16 06:48 Giant Platelets Not Reportable 08/14/16 06:48 Platelet Satelliting Not Reportable 08/14/16 06:48 Plt Morphology Comment Not Reportable 08/14/16 06:48 RBC Morphology Not Reportable 08/14/16 06:48 Dimorphic RBCs Not Reportable 08/14/16 06:48 Polychromasia Not Reportable 08/14/16 06:48 Hypochromasia Not Reportable 08/14/16 06:48 Poikilocytosis Not Reportable 08/14/16 06:48 Anisocytosis 1+ 08/14/16 06:48 Microcytosis Not Reportable 08/14/16 06:48 Macrocytosis Not Reportable 08/14/16 06:48 Spherocytes Not Reportable 08/14/16 06:48 Pappenheimer Bodies Not Reportable 08/14/16 06:48 Sickle Cells Not Reportable 08/14/16 06:48 Target Cells Not Reportable 08/14/16 06:48 Tear Drop Cells Not Reportable 08/14/16 06:48 Ovalocytes Not Reportable 08/14/16 06:48 Helmet Cells Not Reportable 08/14/16 06:48 [place] Bodies Not Reportable 08/14/16 06:48 [place] Rings Not Reportable 08/14/16 06:48 [place] Cells Not Reportable 08/14/16 06:48 Bite Cells Not Reportable 08/14/16 06:48 Crenated Cell Not Reportable 08/14/16 06:48 Elliptocytes Not Reportable 08/14/16 06:48 Acanthocytes (Spur) Not Reportable 08/14/16 06:48 Rouleaux Not Reportable 08/14/16 06:48 Hemoglobin C Crystals Not Reportable 08/14/16 06:48 Schistocytes Not Reportable 08/14/16 06:48 Malaria parasites Not Reportable 08/14/16 06:48 Yung Bodies Not Reportable 08/14/16 06:48 Hem Pathologist Commnt No 08/14/16 06:48 PT 19.4 Sec. (12.2-14.9) H 08/11/16 20:31 INR 1.64 (0.87-1.13) H 08/11/16 20:31 APTT 49.5 Sec. (24.2-36.6) H 08/11/16 20:31 D-Dimer 819.59 ng/mlDDU (0-234) H 08/11/16 20:31 POC ABG pH 7.419 (7.35-7.45) 08/11/16 22:31 POC ABG pCO2 51.9 (35-45) H 08/11/16 22:31 POC ABG pO2 330 (80-105) H 08/11/16 22:31 POC ABG HCO3 33.6 08/11/16 22:31 POC ABG Total CO2 35 08/11/16 22:31 POC ABG O2 Sat 100 08/11/16 22:31 POC ABG Base Excess 9 08/11/16 22:31 FiO2 100 % 08/11/16 22:31 Sodium 140 mmol/L (137-145) 08/14/16 06:48 Potassium 4.0 mmol/L (3.6-5.0) 08/14/16 06:48 Chloride 98.2 mmol/L (98-107) 08/14/16 06:48 Carbon Dioxide 30 mmol/L (22-30) 08/14/16 06:48 Anion Gap 16 mmol/L 08/14/16 06:48 BUN 15 mg/dL (7-17) 08/14/16 06:48 Creatinine 0.9 mg/dL (0.7-1.2) 08/14/16 06:48 Estimated GFR > 60 ml/min 08/14/16 06:48 BUN/Creatinine Ratio 16.66 % 08/14/16 06:48 Glucose 189 mg/dL (65-100) H 08/14/16 06:48 POC Glucose 211 (70-105) H 08/14/16 06:30 Lactic Acid 2.40 mmol/L (0.7-2.0) H* 08/11/16 20:51 Calcium 8.3 mg/dL (8.4-10.2) L 08/14/16 06:48 Magnesium 1.90 mg/dL (1.7-2.3) 08/11/16 20:31 Total Bilirubin 0.40 mg/dL (0.1-1.2) 08/11/16 20:31 AST 16 units/L (5-40) 08/11/16 20:31 ALT 12 units/L (7-56) 08/11/16 20:31 Alkaline Phosphatase 58 units/L (35-129) 08/11/16 20:31 Total Creatine Kinase 96 units/L (30-135) 08/12/16 09:10 CK-MB (CK-2) 2.0 ng/mL (0.0-4.0) 08/12/16 09:10 CK-MB (CK-2) Rel Index 2.0 (0-4) 08/12/16 09:10 Troponin T < 0.010 ng/mL (0.00-0.029) 08/12/16 09:10 NT-Pro-B Natriuret Pep 2212 pg/mL (0-900) H 08/11/16 20:31 Total Protein 6.0 g/dL (6.3-8.2) L 08/11/16 20:31 Albumin 2.6 g/dL (3.9-5) L 08/11/16 20:31 Albumin/Globulin Ratio 0.8 % 08/11/16 20:31 Lipase 7 units/L (13-60) L 08/11/16 20:31
[2016-08-14] MEDS: NOVOLOG SUB-Q SCH (23:19)
[2016-08-15] MEDS: DUONEB 0.5 MG-3 MG/3 ML SOLN IH SCH ×4 (02:32→19:26)
[2016-08-15] MEDS: SYNTHROID PO SCH (06:46)
[2016-08-15] MEDS: PULMICORT IH SCH ×2 (07:17→19:26)
[2016-08-15] MEDS: BROVANA NEBU IH SCH ×2 (07:17→19:25)
[2016-08-15] MEDS: NOVOLOG SUB-Q SCH ×4 (09:09→23:14)
[2016-08-15] MEDS: ATIVAN PO SCH ×3 (09:10→20:25)
--- NOTE | 2016-08-15 11:46 | Progress Note ---
Assessment and Plan Assessment and plan: COPD exacerbation Hypertension Hypothyroidism A. fib GERD - Solu-Medrol, azithromycin, breathing treatment, oxygen support - Patient is on metoprolol and pradaxa - Continue levothyroxine - Continue omeprazole DVT prophylaxis - Pradaxa Disposition - Pending half-way placement. History Interval history: patient was seen and evaluated this morning. Patient breathing is getting better, her daughter doesn't want to send her back to her previous half-way. The daughter was in the room when I examine the patient and plan were discussed with her. Patient is pending for placement. Hospitalist Physical - Physical exam Narrative exam: Not in cardiopulmonary distress. The patient is obese. Vital signs as documented. Head exam is unremarkable. No scleral icterus . Neck is without jugular venous distension, thyromegaly, or carotid bruits. Lungs wheezing over the anterior chest. Cardiac exam reveals regular rate and Rhythm. First and second heart sounds normal. No murmurs, rubs or gallops. Abdominal exam reveals normal bowel sounds, no masses, no organomegaly and no aortic enlargement. Extremities clean dressing on the left foot. 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 N - Constitutional Vitals: Temp Pulse Resp BP Pulse Ox 98.8 F 105 H 26 H 141/72 95 08/15/16 07:45 08/15/16 07:45 08/15/16 07:45 08/15/16 07:45 08/15/16 07:45 Results - Labs CBC & Chem 7: 08/14/16 06:48 08/14/16 06:48 Labs: Laboratory Last Values WBC 13.5 K/mm3 (4.5-11.0) H 08/14/16 06:48 RBC 3.60 M/mm3 (3.65-5.03) L 08/14/16 06:48 Hgb 10.7 gm/dl (10.1-14.3) 08/14/16 06:48 Hct 34.0 % (30.3-42.9) 08/14/16 06:48 MCV 95 fl (79-97) 08/14/16 06:48 MCH 30 pg (28-32) 08/14/16 06:48 MCHC 31 % (30-34) 08/14/16 06:48 RDW 17.8 % (13.2-15.2) H 08/14/16 06:48 Plt Count 118 K/mm3 (140-440) L 08/14/16 06:48 Lymph % (Auto) 7.9 % (13.4-35.0) L 08/11/16 20:31 [place] % (Auto) 6.1 % (0.0-7.3) 08/11/16 20:31 Eos % (Auto) 2.2 % (0.0-4.3) 08/11/16 20:31 Baso % (Auto) 0.4 % (0.0-1.8) 08/11/16 20:31 Lymph # 0.8 K/mm3 (1.2-5.4) L 08/11/16 20:31 [place] # 0.6 K/mm3 (0.0-0.8) 08/11/16 20:31 Eos # 0.2 K/mm3 (0.0-0.4) 08/11/16 20:31 Baso # 0.0 K/mm3 (0.0-0.1) 08/11/16 20:31 Add Manual Diff Complete 08/14/16 06:48 Total Counted 100 08/14/16 06:48 Seg Neutrophils % Track Repair Supervisor 08/14/16 06:48 Seg Neuts % (Manual) 96.0 % (40.0-70.0) H 08/14/16 06:48 Band Neutrophils % 0 % 08/14/16 06:48 Lymphocytes % (Manual) 2.0 % (13.4-35.0) L 08/14/16 06:48 Reactive Lymphs % (Man) 0 % 08/14/16 06:48 Monocytes % (Manual) 2.0 % (0.0-7.3) 08/14/16 06:48 Eosinophils % (Manual) 0 % (0.0-4.3) 08/14/16 06:48 Basophils % (Manual) 0 % (0.0-1.8) 08/14/16 06:48 Metamyelocytes % 0 % 08/14/16 06:48 Myelocytes % 0 % 08/14/16 06:48 Promyelocytes % 0 % 08/14/16 06:48 Blast Cells % 0 % 08/14/16 06:48 Nucleated RBC % Not Reportable 08/14/16 06:48 Seg Neutrophils # 8.1 K/mm3 (1.8-7.7) H 08/11/16 20:31 Seg Neutrophils # Man 13.0 K/mm3 (1.8-7.7) H 08/14/16 06:48 Band Neutrophils # 0.0 K/mm3 08/14/16 06:48 Lymphocytes # (Manual) 0.3 K/mm3 (1.2-5.4) L 08/14/16 06:48 Abs React Lymphs (Man) 0.0 K/mm3 08/14/16 06:48 Monocytes # (Manual) 0.3 K/mm3 (0.0-0.8) 08/14/16 06:48 Eosinophils # (Manual) 0.0 K/mm3 (0.0-0.4) 08/14/16 06:48 Basophils # (Manual) 0.0 K/mm3 (0.0-0.1) 08/14/16 06:48 Metamyelocytes # 0.0 K/mm3 08/14/16 06:48 Myelocytes # 0.0 K/mm3 08/14/16 06:48 Promyelocytes # 0.0 K/mm3 08/14/16 06:48 Blast Cells # 0.0 K/mm3 08/14/16 06:48 WBC Morphology Not Reportable 08/14/16 06:48 Hypersegmented Neuts Not Reportable 08/14/16 06:48 Hyposegmented Neuts Not Reportable 08/14/16 06:48 Hypogranular Neuts Not Reportable 08/14/16 06:48 Smudge Cells Not Reportable 08/14/16 06:48 Toxic Granulation Not Reportable 08/14/16 06:48 Toxic Vacuolation Not Reportable 08/14/16 06:48 Dohle Bodies Not Reportable 08/14/16 06:48 Pelger-Huet Anomaly Not Reportable 08/14/16 06:48 Debra Rods Not Reportable 08/14/16 06:48 Platelet Estimate Consistent w auto 08/14/16 06:48 Clumped Platelets Not Reportable 08/14/16 06:48 Plt Clumps, EDTA Not Reportable 08/14/16 06:48 Large Platelets Not Reportable 08/14/16 06:48 Giant Platelets Not Reportable 08/14/16 06:48 Platelet Satelliting Not Reportable 08/14/16 06:48 Plt Morphology Comment Not Reportable 08/14/16 06:48 RBC Morphology Not Reportable 08/14/16 06:48 Dimorphic RBCs Not Reportable 08/14/16 06:48 Polychromasia Not Reportable 08/14/16 06:48 Hypochromasia Not Reportable 08/14/16 06:48 Poikilocytosis Not Reportable 08/14/16 06:48 Anisocytosis 1+ 08/14/16 06:48 Microcytosis Not Reportable 08/14/16 06:48 Macrocytosis Not Reportable 08/14/16 06:48 Spherocytes Not Reportable 08/14/16 06:48 Pappenheimer Bodies Not Reportable 08/14/16 06:48 Sickle Cells Not Reportable 08/14/16 06:48 Target Cells Not Reportable 08/14/16 06:48 Tear Drop Cells Not Reportable 08/14/16 06:48 Ovalocytes Not Reportable 08/14/16 06:48 Helmet Cells Not Reportable 08/14/16 06:48 [place] Bodies Not Reportable 08/14/16 06:48 [place] Rings Not Reportable 08/14/16 06:48 [place] Cells Not Reportable 08/14/16 06:48 Bite Cells Not Reportable 08/14/16 06:48 Crenated Cell Not Reportable 08/14/16 06:48 Elliptocytes Not Reportable 08/14/16 06:48 Acanthocytes (Spur) Not Reportable 08/14/16 06:48 Rouleaux Not Reportable 08/14/16 06:48 Hemoglobin C Crystals Not Reportable 08/14/16 06:48 Schistocytes Not Reportable 08/14/16 06:48 Malaria parasites Not Reportable 08/14/16 06:48 [place]ung Bodies Not Reportable 08/14/16 06:48 Hem Pathologist Commnt No 08/14/16 06:48 PT 19.4 Sec. (12.2-14.9) H 08/11/16 20:31 INR 1.64 (0.87-1.13) H 08/11/16 20:31 APTT 49.5 Sec. (24.2-36.6) H 08/11/16 20:31 D-Dimer 819.59 ng/mlDDU (0-234) H 08/11/16 20:31 POC ABG pH 7.419 (7.35-7.45) 08/11/16 22:31 POC ABG pCO2 51.9 (35-45) H 08/11/16 22:31 POC ABG pO2 330 (80-105) H 08/11/16 22:31 POC ABG HCO3 33.6 08/11/16 22:31 POC ABG Total CO2 35 08/11/16 22:31 POC ABG O2 Sat 100 08/11/16 22:31 POC ABG Base Excess 9 08/11/16 22:31 FiO2 100 % 08/11/16 22:31 Sodium 140 mmol/L (137-145) 08/14/16 06:48 Potassium 4.0 mmol/L (3.6-5.0) 08/14/16 06:48 Chloride 98.2 mmol/L (98-107) 08/14/16 06:48 Carbon Dioxide 30 mmol/L (22-30) 08/14/16 06:48 Anion Gap 16 mmol/L 08/14/16 06:48 BUN 15 mg/dL (7-17) 08/14/16 06:48 Creatinine 0.9 mg/dL (0.7-1.2) 08/14/16 06:48 Estimated GFR > 60 ml/min 08/14/16 06:48 BUN/Creatinine Ratio 16.66 % 08/14/16 06:48 Glucose 189 mg/dL (65-100) H 08/14/16 06:48 POC Glucose 201 (70-105) H 08/15/16 06:35 Lactic Acid 2.40 mmol/L (0.7-2.0) H* 08/11/16 20:51 Calcium 8.3 mg/dL (8.4-10.2) L 08/14/16 06:48 Magnesium 1.90 mg/dL (1.7-2.3) 08/11/16 20:31 Total Bilirubin 0.40 mg/dL (0.1-1.2) 08/11/16 20:31 AST 16 units/L (5-40) 08/11/16 20:31 ALT 12 units/L (7-56) 08/11/16 20:31 Alkaline Phosphatase 58 units/L (35-129) 08/11/16 20:31 Total Creatine Kinase 96 units/L (30-135) 08/12/16 09:10 CK-MB (CK-2) 2.0 ng/mL (0.0-4.0) 08/12/16 09:10 CK-MB (CK-2) Rel Index 2.0 (0-4) 08/12/16 09:10 Troponin T < 0.010 ng/mL (0.00-0.029) 08/12/16 09:10 NT-Pro-B Natriuret Pep 2212 pg/mL (0-900) H 08/11/16 20:31 Total Protein 6.0 g/dL (6.3-8.2) L 08/11/16 20:31 Albumin 2.6 g/dL (3.9-5) L 08/11/16 20:31 Albumin/Globulin Ratio 0.8 % 08/11/16 20:31 Lipase 7 units/L (13-60) L 08/11/16 20:31
[2016-08-15] MEDS: COLACE PO SCH ×2 (12:01→21:36)
[2016-08-15] MEDS: ZITHROMAX PO SCH (12:02)
[2016-08-15] MEDS: LEXAPRO PO SCH (12:02)
[2016-08-15] MEDS: PRADAXA PO SCH ×2 (12:02→21:36)
[2016-08-15] MEDS: VITAMIN D3 PO SCH (12:02)
[2016-08-15] MEDS: PROTONIX PO SCH (12:03)
[2016-08-15] MEDS: LOPRESSOR PO SCH ×2 (12:03→21:37)
[2016-08-16] MEDS: DUONEB 0.5 MG-3 MG/3 ML SOLN IH SCH ×4 (02:25→20:48)
[2016-08-16] MEDS: SYNTHROID PO SCH (05:22)
--- NOTE | 2016-08-16 08:38 | Query- Heart Failure ---
Deadamion Stanley Date:__08/16/16 Art Handler/CDS:Juvencio Amaral Phone#:_[phone] Exercise your independent professional judgment when responding to query. Questions asked do not imply a particular answer is desired or expected. We greatly appreciate your clarification on this issue. Clinical Documentation States: 80-year-old woman history of hypertension, diabetes, COPD, GERD, A. fib, hypothyroidism, hyperlipidemia comes emergency room with complaints of shortness of breath, cough. Patient was given steroids and nebulizer treatments in the emergency room. Status post recent surgery on the left foot ER documentation: Overall the patient appears to have a combination of COPD exacerbation and CHF exacerbation. Clinical Findings Show: BNP: 2212, SO2:80's per EMS, Resp.Rate:29, ABG: pH;7.419, PaCO2;51.9,PaO2;330, HCO3;33.6 CXR: Mild Pulmonary vascular congestion If possible, Please Clarify if you mean: Acuity: [x ] Acute [ ] Acute on Chronic [ ] Chronic Type: [ ] Systolic Heart Failure [ x] Diastolic Heart Failure [ ] Combined Heart Failure [ ] Other: Present on Admission: [ ] Yes (Y) [x ] Clinically undeterminable (W) [ ] No (N) Please also document response in your Progress Notes and/or Discharge Summary and indicate if the condition was present on admission. BABATUNDE
--- NOTE | 2016-08-16 08:40 | XRay Report ---
AP CHEST: HISTORY: Short of breath Cardiomegaly, pulmonary venous congestion and medium left pleural effusion are identified which have not significantly changed since 08/11/16. IMPRESSION: CHF.
[2016-08-16] MEDS: BROVANA NEBU IH SCH ×2 (08:57→20:49)
[2016-08-16] MEDS: PULMICORT IH SCH ×2 (08:57→20:48)
[2016-08-16] MEDS: ATIVAN PO SCH ×3 (09:24→22:46)
[2016-08-16] MEDS: NOVOLOG SUB-Q SCH ×4 (09:24→22:53)
[2016-08-16] MEDS ORDERED: LASIX IV ONE (09:30)
[2016-08-16] MEDS: LOPRESSOR PO SCH ×2 (11:04→22:47)
[2016-08-16] MEDS: COLACE PO SCH ×2 (11:04→22:46)
[2016-08-16] MEDS: VITAMIN D3 PO SCH (11:04)
[2016-08-16] MEDS: PROTONIX PO SCH (11:05)
[2016-08-16] MEDS: ZITHROMAX PO SCH (11:05)
[2016-08-16] MEDS: LEXAPRO PO SCH (11:05)
[2016-08-16] MEDS: PRADAXA PO SCH ×2 (11:29→22:46)
--- NOTE | 2016-08-16 12:24 | Progress Note ---
Assessment and Plan Assessment and plan: COPD exacerbation Hypertension Hypothyroidism A. fib GERD - Chest x-ray shows stable condition - Patient may have congestive heart failure and echo is placed - Patient started on IV furosemide - Solu-Medrol, azithromycin, breathing treatment, oxygen support - Patient is on metoprolol and pradaxa - Continue levothyroxine - Continue omeprazole DVT prophylaxis - Pradaxa Disposition - Continue inpatient care and possible retirement placement tomorrow History Interval history: patient was seen and evaluated this morning. She still has labored breathing. Wheezing. Hospitalist Physical - Physical exam Narrative exam: Not in cardiopulmonary distress. The patient is obese. Vital signs as documented. Head exam is unremarkable. No scleral icterus . Neck is without jugular venous distension, thyromegaly, or carotid bruits. Lungs wheezing all over the chest Cardiac exam reveals regular rate and Rhythm. Abdominal exam reveals normal bowel sounds, no masses, no organomegaly and no aortic enlargement. Extremities clean dressing on the left foot. VETERANS' COORDINATOR: Alert and oriented 2. - Constitutional Vitals: Temp Pulse Resp BP Pulse Ox 98.6 F 106 H 20 186/77 96 08/16/16 07:00 08/16/16 09:15 08/16/16 09:15 08/16/16 11:04 08/16/16 10:00 Results - Labs CBC & Chem 7: 08/14/16 06:48 08/14/16 06:48 Labs: Laboratory Last Values WBC 13.5 K/mm3 (4.5-11.0) H 08/14/16 06:48 RBC 3.60 M/mm3 (3.65-5.03) L 08/14/16 06:48 Hgb 10.7 gm/dl (10.1-14.3) 08/14/16 06:48 Hct 34.0 % (30.3-42.9) 08/14/16 06:48 MCV 95 fl (79-97) 08/14/16 06:48 MCH 30 pg (28-32) 08/14/16 06:48 MCHC 31 % (30-34) 08/14/16 06:48 RDW 17.8 % (13.2-15.2) H 08/14/16 06:48 Plt Count 118 K/mm3 (140-440) L 08/14/16 06:48 Lymph % (Auto) 7.9 % (13.4-35.0) L 08/11/16 20:31 Mckenzie % (Auto) 6.1 % (0.0-7.3) 08/11/16 20:31 Eos % (Auto) 2.2 % (0.0-4.3) 08/11/16 20:31 Baso % (Auto) 0.4 % (0.0-1.8) 08/11/16 20:31 Lymph # 0.8 K/mm3 (1.2-5.4) L 08/11/16 20:31 Mckenzie # 0.6 K/mm3 (0.0-0.8) 08/11/16 20:31 Eos # 0.2 K/mm3 (0.0-0.4) 08/11/16 20:31 Baso # 0.0 K/mm3 (0.0-0.1) 08/11/16 20:31 Add Manual Diff Complete 08/14/16 06:48 Total Counted 100 08/14/16 06:48 Seg Neutrophils % Clother In 08/14/16 06:48 Seg Neuts % (Manual) 96.0 % (40.0-70.0) H 08/14/16 06:48 Band Neutrophils % 0 % 08/14/16 06:48 Lymphocytes % (Manual) 2.0 % (13.4-35.0) L 08/14/16 06:48 Reactive Lymphs % (Man) 0 % 08/14/16 06:48 Monocytes % (Manual) 2.0 % (0.0-7.3) 08/14/16 06:48 Eosinophils % (Manual) 0 % (0.0-4.3) 08/14/16 06:48 Basophils % (Manual) 0 % (0.0-1.8) 08/14/16 06:48 Metamyelocytes % 0 % 08/14/16 06:48 Myelocytes % 0 % 08/14/16 06:48 Promyelocytes % 0 % 08/14/16 06:48 Blast Cells % 0 % 08/14/16 06:48 Nucleated RBC % Not Reportable 08/14/16 06:48 Seg Neutrophils # 8.1 K/mm3 (1.8-7.7) H 08/11/16 20:31 Seg Neutrophils # Man 13.0 K/mm3 (1.8-7.7) H 08/14/16 06:48 Band Neutrophils # 0.0 K/mm3 08/14/16 06:48 Lymphocytes # (Manual) 0.3 K/mm3 (1.2-5.4) L 08/14/16 06:48 Abs React Lymphs (Man) 0.0 K/mm3 08/14/16 06:48 Monocytes # (Manual) 0.3 K/mm3 (0.0-0.8) 08/14/16 06:48 Eosinophils # (Manual) 0.0 K/mm3 (0.0-0.4) 08/14/16 06:48 Basophils # (Manual) 0.0 K/mm3 (0.0-0.1) 08/14/16 06:48 Metamyelocytes # 0.0 K/mm3 08/14/16 06:48 Myelocytes # 0.0 K/mm3 08/14/16 06:48 Promyelocytes # 0.0 K/mm3 08/14/16 06:48 Blast Cells # 0.0 K/mm3 08/14/16 06:48 WBC Morphology Not Reportable 08/14/16 06:48 Hypersegmented Neuts Not Reportable 08/14/16 06:48 Hyposegmented Neuts Not Reportable 08/14/16 06:48 Hypogranular Neuts Not Reportable 08/14/16 06:48 Smudge Cells Not Reportable 08/14/16 06:48 Toxic Granulation Not Reportable 08/14/16 06:48 Toxic Vacuolation Not Reportable 08/14/16 06:48 Dohle Bodies Not Reportable 08/14/16 06:48 Pelger-Huet Anomaly Not Reportable 08/14/16 06:48 Debra Rods Not Reportable 08/14/16 06:48 Platelet Estimate Consistent w auto 08/14/16 06:48 Clumped Platelets Not Reportable 08/14/16 06:48 Plt Clumps, EDTA Not Reportable 08/14/16 06:48 Large Platelets Not Reportable 08/14/16 06:48 Giant Platelets Not Reportable 08/14/16 06:48 Platelet Satelliting Not Reportable 08/14/16 06:48 Plt Morphology Comment Not Reportable 08/14/16 06:48 RBC Morphology Not Reportable 08/14/16 06:48 Dimorphic RBCs Not Reportable 08/14/16 06:48 Polychromasia Not Reportable 08/14/16 06:48 Hypochromasia Not Reportable 08/14/16 06:48 Poikilocytosis Not Reportable 08/14/16 06:48 Anisocytosis 1+ 08/14/16 06:48 Microcytosis Not Reportable 08/14/16 06:48 Macrocytosis Not Reportable 08/14/16 06:48 Spherocytes Not Reportable 08/14/16 06:48 Pappenheimer Bodies Not Reportable 08/14/16 06:48 Sickle Cells Not Reportable 08/14/16 06:48 Target Cells Not Reportable 08/14/16 06:48 Tear Drop Cells Not Reportable 08/14/16 06:48 Ovalocytes Not Reportable 08/14/16 06:48 Helmet Cells Not Reportable 08/14/16 06:48 Logan-Ridge Bodies Not Reportable 08/14/16 06:48 [place] Rings Not Reportable 08/14/16 06:48 Stewart Cells Not Reportable 08/14/16 06:48 Bite Cells Not Reportable 08/14/16 06:48 Crenated Cell Not Reportable 08/14/16 06:48 Elliptocytes Not Reportable 08/14/16 06:48 Acanthocytes (Spur) Not Reportable 08/14/16 06:48 Rouleaux Not Reportable 08/14/16 06:48 Hemoglobin C Crystals Not Reportable 08/14/16 06:48 Schistocytes Not Reportable 08/14/16 06:48 Malaria parasites Not Reportable 08/14/16 06:48 Yung Bodies Not Reportable 08/14/16 06:48 Hem Pathologist Commnt No 08/14/16 06:48 PT 19.4 Sec. (12.2-14.9) H 08/11/16 20:31 INR 1.64 (0.87-1.13) H 08/11/16 20:31 APTT 49.5 Sec. (24.2-36.6) H 08/11/16 20:31 D-Dimer 819.59 ng/mlDDU (0-234) H 08/11/16 20:31 POC ABG pH 7.419 (7.35-7.45) 08/11/16 22:31 POC ABG pCO2 51.9 (35-45) H 08/11/16 22:31 POC ABG pO2 330 (80-105) H 08/11/16 22:31 POC ABG HCO3 33.6 08/11/16 22:31 POC ABG Total CO2 35 08/11/16 22:31 POC ABG O2 Sat 100 08/11/16 22:31 POC ABG Base Excess 9 08/11/16 22:31 FiO2 100 % 08/11/16 22:31 Sodium 140 mmol/L (137-145) 08/14/16 06:48 Potassium 4.0 mmol/L (3.6-5.0) 08/14/16 06:48 Chloride 98.2 mmol/L (98-107) 08/14/16 06:48 Carbon Dioxide 30 mmol/L (22-30) 08/14/16 06:48 Anion Gap 16 mmol/L 08/14/16 06:48 BUN 15 mg/dL (7-17) 08/14/16 06:48 Creatinine 0.9 mg/dL (0.7-1.2) 08/14/16 06:48 Estimated GFR > 60 ml/min 08/14/16 06:48 BUN/Creatinine Ratio 16.66 % 08/14/16 06:48 Glucose 189 mg/dL (65-100) H 08/14/16 06:48 POC Glucose 60 (70-105) L 08/16/16 06:15 Lactic Acid 2.40 mmol/L (0.7-2.0) H* 08/11/16 20:51 Calcium 8.3 mg/dL (8.4-10.2) L 08/14/16 06:48 Magnesium 1.90 mg/dL (1.7-2.3) 08/11/16 20:31 Total Bilirubin 0.40 mg/dL (0.1-1.2) 08/11/16 20:31 AST 16 units/L (5-40) 08/11/16 20:31 ALT 12 units/L (7-56) 08/11/16 20:31 Alkaline Phosphatase 58 units/L (35-129) 08/11/16 20:31 Total Creatine Kinase 96 units/L (30-135) 08/12/16 09:10 CK-MB (CK-2) 2.0 ng/mL (0.0-4.0) 08/12/16 09:10 CK-MB (CK-2) Rel Index 2.0 (0-4) 08/12/16 09:10 Troponin T < 0.010 ng/mL (0.00-0.029) 08/12/16 09:10 NT-Pro-B Natriuret Pep 2212 pg/mL (0-900) H 08/11/16 20:31 Total Protein 6.0 g/dL (6.3-8.2) L 08/11/16 20:31 Albumin 2.6 g/dL (3.9-5) L 08/11/16 20:31 Albumin/Globulin Ratio 0.8 % 08/11/16 20:31 Lipase 7 units/L (13-60) L 08/11/16 20:31 - Imaging and Cardiology Chest x-ray: image reviewed (congestion\)
[2016-08-16] MEDS: LASIX PO SCH (18:21)
[2016-08-16] MEDS: XALATAN 0.005% OU SCH ×2 (22:55→23:41)
[2016-08-17] MEDS: DUONEB 0.5 MG-3 MG/3 ML SOLN IH SCH ×3 (02:38→15:36)
[2016-08-17] MEDS: SYNTHROID PO SCH (06:47)
[2016-08-17] MEDS: LASIX PO SCH (06:47)
[2016-08-17 07:37] LABS: Hematocrit 34.2 % (30.3-42.9); Hemoglobin 11.1 gm/dl (10.1-14.3); Mean Corpuscular HGB Conc 32 % (30-34); Mean Corpuscular Hemoglobin 30 pg (28-32); Mean Corpuscular Volume 93 fl (79-97); Platelet Count 151 K/mm3 (140-440); Red Blood Count 3.67 M/mm3 (3.65-5.03); Red Cell Distribution Width 17.6 % (13.2-15.2); White Blood Count 11.2 K/mm3 (4.5-11.0)
[2016-08-17 07:54] LABS: BUN/Creatinine Ratio 28.75; Blood Urea Nitrogen 23 mg/dL (7-17); Calcium 8.5 mg/dL (8.4-10.2); Carbon Dioxide 39 mmol/L (22-30); Chloride 98.9 mmol/L (98-107); Glucose 181 mg/dL (65-100); Potassium 4.2 mmol/L (3.6-5.0); Sodium 143 mmol/L (137-145)
[2016-08-17 07:57] LABS: Anion Gap 9 mmol/L
[2016-08-17] MEDS: BROVANA NEBU IH SCH (08:22)
[2016-08-17] MEDS: PULMICORT IH SCH (08:23)
[2016-08-17 08:30] LABS: Anisocytosis 1+; Basophils % (Manual) 0 % (0.0-1.8); Blastocytes % (Manual) 0 %; Eosinophils % (Manual) 0 % (0.0-4.3)
[2016-08-17 08:31] LABS: Acanthocytes Rare; Burr Cells Few; Diff Status Complete; Elliptocytes 1+
[2016-08-17] MEDS: NOVOLOG SUB-Q SCH ×2 (08:51→13:16)
[2016-08-17] MEDS: ATIVAN PO SCH (08:52)
--- NOTE | 2016-08-17 10:15 | Discharge Summary ---
Providers - Providers Date of Admission: 08/12/16 03:35 Date of discharge: 08/17/16 Attending physician: DMITRIY PELAYO 08/12/16 10:32 Physical Therapy Evaluation and Treat [CONS] Routine Comment: Reason For Exam: placement 08/12/16 21:18 Consult to Wound/ET Nurse [CONS] Routine Reason For Exam: wound eval 08/13/16 07:44 Speech Therapy Evaluation and Treat [CONS] Routine Reason For Exam: problems swallowing 08/16/16 15:37 Consult to Physician [CONS] Routine Consulting Provider: ULISES CRUZ Reason For Exam: diastolic CHF Place consult to:: [facility] Notified:: RISHABH BAUMANN Phone number called:: INHOUSE Was contact made?: Yes If yes, spoke with:: RISHABH BAUMANN Time called:: 08:21 Comment:: PAT NOTIFIED Primary care physician: DATA ANALYSIS INTERN Hospitalization Condition: Fair Disposition: DC/[place] SNF W [facility] CERT - Discharge Diagnoses (1) COPD exacerbation Status: Acute (2) Acute on chronic respiratory failure Status: Acute Qualifiers: Respiratory failure complication: R Core Measure Documentation - Palliative Care Palliative Care/ Comfort Measures: Not Applicable Exam - Constitutional Vitals: Temp Pulse Resp BP Pulse Ox 97.9 F 95 H 18 131/95 100 08/17/16 07:00 08/17/16 07:00 08/17/16 07:00 08/17/16 07:00 08/17/16 07:00 Plan Activity: no restrictions Diet: low fat, low cholesterol, low salt, other (Mechanical soft diet) Additional Instructions: 1.Continue Oxygen at 3l/min NC continuous. 2.To be seen by Physician at SNF in 3-5 days Follow up with: PRIMARY CARE, [Primary Care Provider] - 3-5 Days Prescriptions: Azithromycin [Zithromax TAB] 250 mg PO QDAY #5 tablet Furosemide [Lasix TAB] 40 mg PO QDAY #30 tablet Prednisone [predniSONE 5 mg (6-Day Pack, 21 Tabs)] 5 mg PO .TAPER #1 tab.ds.pk
[2016-08-17] MEDS: LEXAPRO PO SCH (10:20)
[2016-08-17] MEDS: VITAMIN D3 PO SCH (10:21)
[2016-08-17] MEDS: LOPRESSOR PO SCH (10:21)
[2016-08-17] MEDS: PROTONIX PO SCH (10:22)
[2016-08-17] MEDS: PRADAXA PO SCH (10:22)
[2016-08-17] MEDS: COLACE PO SCH (10:23)
[2016-08-17] MEDS: ZITHROMAX PO SCH (10:24)
--- NOTE | 2016-08-17 11:01 | Consultation ---
History of Present Illness Consult date: 08/17/16 Requesting physician: RAPHAEL PEREZ Consult reason: congestive heart failure History of present illness: The patient is an 80-year-old female alf resident who is previously unknown to our practice. She presented with complaints of shortness of breath. Per the records, when EMS arrived at her alf, she was found to have an oxygen saturation in the 80s on 3 L nasal cannula (pt is chronically on 3L) and then was placed on a NRB. On evaluation, she still c/o SOB (both when sitting upright and lying flat). She denies any other complaints. Past History Past Medical History: atrial fib, COPD (on home O2), diabetes, hypertension Medications and Allergies Allergies Allergy/AdvReac Type Severity Reaction Status Date / Time Penicillins Allergy Severe Anaphylaxis Verified 08/11/16 19:56 Home Medications Medication Instructions Recorded Confirmed Last Taken Type AtorvaSTATin [Lipitor] 10 mg PO QDAY 08/11/16 08/11/16 Unknown History Cholecalciferol (Vitamin D3) 1,000 unit PO QDAY 08/11/16 08/11/16 Unknown History [Vitamin D3] Dabigatran [Pradaxa] 150 mg PO BID 08/11/16 08/11/16 Unknown History Docusate Calcium 240 mg PO QDAY 08/11/16 08/11/16 Unknown History Escitalopram [Lexapro] 10 mg PO DAILY 08/11/16 08/11/16 Unknown History Fluticasone/Salmeterol [Advair 1 puff IH BID 08/11/16 08/11/16 Unknown History Diskus 250-50 mcg] Hydrocortisone [Cortef TAB] 20 mg PO QDAY 08/11/16 08/11/16 Unknown History LORazepam [Ativan] 0.5 mg PO TID 08/11/16 08/11/16 Unknown History Levothyroxine [Synthroid] 75 mcg PO QAM 08/11/16 08/11/16 Unknown History Metoprolol [Lopressor TAB] 25 mg PO BID 08/11/16 08/11/16 Unknown History Omeprazole Magnesium [PriLOSEC Otc] 20 mg PO QDAY 08/11/16 08/11/16 Unknown History Tiotropium [Spiriva] 18 mcg IH QDAY 08/11/16 08/11/16 Unknown History Travoprost (Benzalkonium) 1 drop OP QHS 08/11/16 08/11/16 Unknown History [Travoprost 0.004% Eye Drop] Vitamin B Complex [B Complex] 1 each PO DAILY 08/11/16 08/11/16 Unknown History amLODIPine [Norvasc] 10 mg PO DAILY 08/11/16 08/11/16 Unknown History hydrALAZINE [Apresoline TAB] 10 mg PO Q8H 08/11/16 08/11/16 Unknown History traMADol [Ultram 50 MG tab] 50 mg PO Q6HR PRN 08/11/16 08/11/16 Unknown History Azithromycin [Zithromax TAB] 250 mg PO QDAY #5 tablet 08/17/16 Unknown Rx Furosemide [Lasix TAB] 40 mg PO QDAY #30 tablet 08/17/16 Unknown Rx Prednisone [predniSONE 5 mg (6-Day 5 mg PO .TAPER #1 tab.ds.pk 08/17/16 Unknown Rx Pack, 21 Tabs)] Active Meds: Active Medications Acetaminophen (Tylenol) 650 mg PO Q4H PRN PRN Reason: Pain MILD(1-3)/Fever >100.5/CANCINO Albuterol/Ipratropium (Duoneb 0.5 Mg-3 Mg/3 Ml Soln) 1 ampul IH Q6HRT [facility] Last Admin: 08/17/16 08:24 Dose: Not Given Arformoterol Tartrate (Brovana Nebu) 15 mcg IH Q12HRT [facility] Last Admin: 08/17/16 08:22 Dose: 15 mcg Atorvastatin Calcium (Lipitor) 10 mg PO QDAY [facility] Last Admin: 08/17/16 10:20 Dose: 10 mg Azithromycin (Zithromax) 500 mg PO QDAY [facility] Last Admin: 08/17/16 10:24 Dose: 500 mg Bisacodyl (Dulcolax) 10 mg [place] QDAY PRN PRN Reason: Constipation unrelieved by MOM Budesonide (Pulmicort) 0.5 mg IH Q12HRT [facility] Last Admin: 08/17/16 08:23 Dose: 0.5 mg Cholecalciferol (Vitamin D3) 1,000 unit PO QDAY [facility] Last Admin: 08/17/16 10:21 Dose: 1,000 unit Dabigatran (Pradaxa) 150 mg PO BID [facility] PRN Reason: Protocol Last Admin: 08/17/16 10:22 Dose: 150 mg Docusate Sodium (Colace) 100 mg PO BID [facility] Last Admin: 08/17/16 10:23 Dose: 100 mg Escitalopram Oxalate (Lexapro) 10 mg PO DAILY [facility] Last Admin: 08/17/16 10:20 Dose: 10 mg Furosemide (Lasix) 40 mg PO 0600,1800 [facility] Last Admin: 08/17/16 06:47 Dose: 40 mg Insulin Aspart (Novolog) 0 units SUB-Q ACHS [facility] PRN Reason: Protocol Last Admin: 08/17/16 08:51 Dose: 2 units Latanoprost (Xalatan 0.005%) 1 drops OU QHS [facility] Last Admin: 08/16/16 23:41 Dose: Not Given Levothyroxine Sodium (Synthroid) 75 mcg PO QAM@0600 [facility] Last Admin: 08/17/16 06:47 Dose: 75 mcg Lorazepam (Ativan) 0.5 mg PO TID [facility] Last Admin: 08/17/16 08:52 Dose: Not Given Magnesium Hydroxide (Milk Of Magnesia) 30 ml PO Q4H PRN PRN Reason: Constipation Methylprednisolone Sodium Succinate (Solu-Medrol) 60 mg IV Q8H [facility] Last Admin: 08/17/16 04:50 Dose: 60 mg Metoprolol Tartrate (Lopressor) 25 mg PO BID [facility] Last Admin: 08/17/16 10:21 Dose: 25 mg Ondansetron HCl (Zofran) 4 mg IV Q8H PRN PRN Reason: N/V unrelieved by Reglan Pantoprazole Sodium (Protonix) 20 mg PO QDAY [facility] Last Admin: 08/17/16 10:22 Dose: 20 mg Review of Systems All systems: negative Cardiovascular: orthopnea, shortness of breath, no chest pain Respiratory: shortness of breath Physical Examination Last Vital Signs Temp 97.9 F 08/17/16 07:00 Pulse 98 H 08/17/16 08:11 Resp 18 08/17/16 08:11 BP 131/95 08/17/16 10:21 Pulse Ox 96 08/17/16 08:10 General appearance: no acute distress HEENT: Positive: PERRL, Normocephaly, Mucus Membranes Moist Neck: Positive: neck supple, trachea midline Cardiac: Positive: irregularly irregular, S1/S2 Lungs: Positive: Rhonchi (anterior) Neuro: Positive: Grossly Intact Abdomen: Positive: Soft, Active Bowel Sounds Skin: Positive: Clear. Negative: Rash Musculoskeletal: No Fluid Collection, No Pain, Normal Range of Motion Extremities: Present: upper extr. pulses, lower extr. pulses (diminished pedal pulses ), Other (left foot in dressing; BLE chronic skin changes noted ). Absent: edema Results 08/17/16 07:05 08/17/16 07:05 CBC 08/17/16 Range/Units 07:05 WBC 11.2 H (4.5-11.0) K/mm3 RBC 3.67 (3.65-5.03) M/mm3 Hgb 11.1 (10.1-14.3) gm/dl Hct 34.2 (30.3-42.9) % Plt Count 151 (140-440) K/mm3 Comprehensive Metabolic Panel 08/17/16 Range/Units 07:05 Sodium 143 (137-145) mmol/L Potassium 4.2 (3.6-5.0) mmol/L Chloride 98.9 (98-107) mmol/L Carbon Dioxide 39 H D (22-30) mmol/L BUN 23 H (7-17) mg/dL Creatinine 0.8 (0.7-1.2) mg/dL Glucose 181 H (65-100) mg/dL Calcium 8.5 (8.4-10.2) mg/dL - Imaging and Cardiology Echo: report reviewed EKG: report reviewed, image reviewed EKG interpretations - Telemetry EKG Rhythm: Atrial Fibrillation - EKG Supraventricular dysrhythmia: atrial fibrillation Assessment and Plan Plan: Continue pradaxa. Convert PO lasix to IV, 40mg BID. Initiate PO potassium, 20mEq daily. Initiate lisinopril, 10mg daily. The patient has been seen in conjunction with Dr. Burt who agrees with the assessment and plan of care. - Patient Problems (1) Acute diastolic heart failure Current Visit: Yes Status: Acute (2) Acute on chronic respiratory failure Current Visit: Yes Status: Acute Qualifiers: Respiratory failure complication: R (3) COPD (chronic obstructive pulmonary disease) Current Visit: Yes Status: Chronic Qualifiers: COPD type: COPD with acute exacerbation Chronic bronchitis type: C Emphysema type: E Qualified Code(s): J44.1 - Chronic obstructive pulmonary disease with (acute) exacerbation (4) Atrial fibrillation Current Visit: Yes Status: Chronic Qualifiers: Atrial fibrillation type: A (5) Diabetes Current Visit: Yes Status: Chronic Qualifiers: Diabetes mellitus type: D Diabetes mellitus complication status: D Diabetes mellitus complication detail: D Diabetic retinopathy severity: D Proliferative retinopathy type: P Diabetes mellitus macular edema: D Diabetes mellitus usp insulin use: D Laterality: L Chronic kidney disease stage: C (6) Hypertension Current Visit: Yes Status: Chronic Qualifiers: Hypertension type: essential hypertension Qualified Code(s): I10 - Essential (primary) hypertension (7) PAD (peripheral artery disease) Current Visit: Yes Status: Chronic (8) Obesity Current Visit: Yes Status: Chronic Qualifiers: Obesity type: O Obesity severity: O
[2016-08-17] MEDS ORDERED: ZESTRIL PO SCH (12:00)
[2016-08-17 16:49] VITALS: BP 137/77
[2016-08-17] MEDS ORDERED: LASIX IV SCH (18:00)
[2016-08-18] MEDS ORDERED: K-DUR PO SCH (10:00)
== END 2016-08-17 18:00 | DRG 189 ==
LOC: ED 19:03 → 3A 08-12 03:35
PROVIDERS: ADMIT Internal Medicine; ATTEND Internal Medicine
PROC: 5A09457 Assistance with Respiratory Ventilation, 24-96 Consecutive Hours, Continuous Positive Airway Pressure (ICD-10-PCS; principal; 2016-08-12)
PROC: 4A033R1 Measurement of Arterial Saturation, Peripheral, Percutaneous Approach (ICD-10-PCS; 2016-08-12)
DX: J96.01 Acute respiratory failure with hypoxia (principal); I50.31 Acute diastolic (congestive) heart failure; J44.1 Chronic obstructive pulmonary disease with (acute) exacerbation; Z68.45 Body mass index [BMI] 70 or greater, adult; I11.0 Hypertensive heart disease with heart failure; E11.9 Type 2 diabetes mellitus without complications; K21.9 Gastro-esophageal reflux disease without esophagitis; I48.91 Unspecified atrial fibrillation; E03.9 Hypothyroidism, unspecified; E11.51 Type 2 diabetes mellitus with diabetic peripheral angiopathy without gangrene; E66.9 Obesity, unspecified; Z88.0 Allergy status to penicillin; Z82.49 Family history of ischemic heart disease and other diseases of the circulatory system; Z89.412 Acquired absence of left great toe
CPT/HCPCS: 36415; 71010; 78582; 80048; 80053; 82140; 82550; 82553; 82803; 82962; 83690; 83735; 83880; 84484; 85007; 85025; 85379; 85610; 85730; 93005; 93010; 93306; 94640; 94660; 94760; 96365; 96375; A9270-GY; A9540; A9558; G8978-GP; G8979-GP; G8996-GN; G8997-GN; J1815; J1940; J2920; J2930; J3475